=== PATIENT | male | born 1970 | race African-American/Black ===

== ENCOUNTER 2017-04-14 10:06 | Emergency (ER) | payer MEDICAID ==
[~2017-04-14] VITALS: Ht 170.2 cm; Wt 100.0 kg
[2017-04-14 10:19] VITALS: BP 149/96
[2017-04-14] MEDS ORDERED: METOCLOPRAMIDE HCL 10MG TABLET PO STA (12:17)
[2017-04-14] MEDS ORDERED: FAMOTIDINE 20MG TABLET PO STA (12:17)
[2017-04-14 12:54] LABS: BASOPHILS % 0.6 % (0.0-2.0); CHLORIDE 98 mEq/L (98-107); EOSINOPHILS % 0.9 % (0.0-5.0); HEMATOCRIT. 45.4 % (42.0-52.0); HEMOGLOBIN. 15.7 g/dL (14.0-18.0); LYMPHOCYTES % 31.1 % (20.0-50.0); MEAN CORPUSCULAR HEMOGLOBIN 28.8 pg (28.0-32.0); MEAN CORPUSCULAR VOLUME 83.3 fL (80.0-94.0); MEAN PLATELET VOLUME 8.4 fl (7.4-10.4); MONOCYTES % 5.3 % (2.0-8.0); NEUTROPHILS % 62.1 % (40.0-76.0); PLATELET 212 x1000/uL (130-400); RED BLOOD CELL COUNT 5.45 mill/uL (4.7-6.1); RED CELL DISTRIBUTION WIDTH 13.1 % (11.6-14.6)
[2017-04-14 13:03] LABS: CARBON DIOXIDE 29 mEq/L (21-32)
== END 2017-04-14 14:24 | disposition home or self-care (01) ==
LOC: ER 13:30
DX: K92.0 Hematemesis (principal); R10.13 Epigastric pain; K92.1 Melena
CPT/HCPCS: 36415; 80053; 83690; 85025; 99284; J8597

== ENCOUNTER 2017-11-11 17:28 | Emergency (ER) | payer MEDICAID ==
[~2017-11-11] VITALS: Ht 170.2 cm; Wt 91.0 kg
[2017-11-11 22:40] VITALS: BP 130/83
[2017-11-11] MEDS ORDERED: MAGNESIUM/ALUMINUM HYDROXIDE/SIMETHICONE 30ML UDC PO STA (22:54)
[2017-11-11] MEDS ORDERED: VISCOUS LIDOCAINE 2% 15 ML UDC PO STA (22:54)
[2017-11-11] MEDS ORDERED: ONDANSETRON HCL 4MG TABLET PO ONE (23:00)
== END 2017-11-12 00:50 | disposition home or self-care (01) ==
LOC: ER 18:46
DX: K21.9 Gastro-esophageal reflux disease without esophagitis (principal)
CPT/HCPCS: 71046; 93005; 99284; Q0162; Z7610

== ENCOUNTER 2017-12-04 13:05 | Emergency (ER) | payer MEDICAID ==
[~2017-12-04] VITALS: Ht 170.2 cm; Wt 100.0 kg
[2017-12-04] MEDS ORDERED: KETOROLAC 30MG/ML VIAL IM ONE (14:45)
[2017-12-04] MEDS ORDERED: CYCLOBENZAPRINE 10MG TABLET PO ONE (14:45)
[2017-12-04 15:48] VITALS: BP 110/73
== END 2017-12-04 15:56 | disposition home or self-care (01) ==
LOC: ER 14:02
DX: M54.5 Low back pain (principal)
CPT/HCPCS: 72110; 96372; 99284; J1885

== ENCOUNTER 2017-12-29 05:25 | Emergency (ER) | payer MEDICAID ==
[~2017-12-29] VITALS: Ht 170.2 cm; Wt 91.0 kg
[2017-12-29] MEDS ORDERED: SODIUM CHLORIDE 0.9% 1,000 ML IV ONE (06:14)
[2017-12-29 06:51] LABS: BASOPHILS % 0.3 % (0.0-2.0); EOSINOPHILS % 3.2 % (0.0-5.0); HEMATOCRIT. 39.3 % (42.0-52.0); HEMOGLOBIN. 13.7 g/dL (14.0-18.0); LYMPHOCYTES % 37.1 % (20.0-50.0); MEAN CORPUSCULAR HEMOGLOBIN 29.9 pg (28.0-32.0); MEAN CORPUSCULAR VOLUME 85.7 fL (80.0-94.0); MEAN PLATELET VOLUME 8.3 fl (7.4-10.4); MONOCYTES % 10.7 % (2.0-8.0); NEUTROPHILS % 48.7 % (40.0-76.0); PLATELET 194 x1000/uL (130-400); RED BLOOD CELL COUNT 4.59 mill/uL (4.7-6.1); RED CELL DISTRIBUTION WIDTH 13.7 % (11.6-14.6)
[2017-12-29 06:53] LABS: CHLORIDE 103 mEq/L (98-107)
[2017-12-29] MEDS ORDERED: MAGNESIUM/ALUMINUM HYDROXIDE/SIMETHICONE 30ML UDC PO STA (08:07)
[2017-12-29] MEDS ORDERED: KETOROLAC 15MG/ML VIAL IV ONE (08:15)
[2017-12-29] MEDS ORDERED: ONDANSETRON HCL 4MG/2ML VIAL IV ONE (08:15)
[2017-12-29] MEDS ORDERED: FAMOTIDINE 20MG/2ML VIAL IV ONE (08:15)
[2017-12-29 08:25] VITALS: BP 120/81
== END 2017-12-29 08:40 | disposition home or self-care (01) ==
LOC: ER 05:25
DX: B34.9 Viral infection, unspecified (principal); D64.9 Anemia, unspecified; E88.09 Other disorders of plasma-protein metabolism, not elsewhere classified; K21.9 Gastro-esophageal reflux disease without esophagitis; R74.0 Nonspecific elevation of levels of transaminase and lactic acid dehydrogenase [LDH]; R73.9 Hyperglycemia, unspecified
CPT/HCPCS: 36415; 71045; 80053; 83605; 85025; 87804; 93005; 96361; 96374; 96375; 99285; J1885; J2405; J3490; J7030

== ENCOUNTER 2018-02-22 08:09 | Emergency (ER) | payer MEDICAID ==
[~2018-02-22] VITALS: Ht 170.2 cm; Wt 100.0 kg
[2018-02-22] MEDS ORDERED: ONDANSETRON HCL 4MG/2ML VIAL IV STA (09:10)
[2018-02-22] MEDS ORDERED: VISCOUS LIDOCAINE 2% 15 ML UDC PO STA (09:10)
[2018-02-22] MEDS ORDERED: MAGNESIUM/ALUMINUM HYDROXIDE/SIMETHICONE 30ML UDC PO STA (09:10)
[2018-02-22] MEDS ORDERED: FAMOTIDINE 20MG/2ML VIAL IV ONE (09:15)
[2018-02-22 09:31] LABS: BASOPHILS % 0.4 % (0.0-2.0); EOSINOPHILS % 0.7 % (0.0-5.0); HEMATOCRIT. 38.9 % (42.0-52.0); HEMOGLOBIN. 13.4 g/dL (14.0-18.0); LYMPHOCYTES % 40.1 % (20.0-50.0); MEAN CORPUSCULAR HEMOGLOBIN 29.5 pg (28.0-32.0); MEAN CORPUSCULAR VOLUME 85.8 fL (80.0-94.0); MEAN PLATELET VOLUME 7.8 fl (7.4-10.4); MONOCYTES % 5.4 % (2.0-8.0); NEUTROPHILS % 53.4 % (40.0-76.0); PLATELET 193 x1000/uL (130-400); RED BLOOD CELL COUNT 4.53 mill/uL (4.7-6.1); RED CELL DISTRIBUTION WIDTH 13.5 % (11.6-14.6)
[2018-02-22 09:33] LABS: CHLORIDE 103 mEq/L (98-107)
[2018-02-22 09:37] LABS: ETHANOL BLOOD < 10 mg/dL
[2018-02-22] MEDS ORDERED: KETOROLAC 30MG/ML VIAL IV ONE (10:15)
[2018-02-22 11:50] VITALS: BP 139/84
== END 2018-02-22 11:57 | disposition home or self-care (01) ==
LOC: ER 08:30
DX: R11.2 Nausea with vomiting, unspecified (principal); M79.1 Myalgia; R10.13 Epigastric pain
CPT/HCPCS: 36415; 80053; 83690; 85025; 96374; 96375; 99284; G0482; J1885; J2405; J3490

== ENCOUNTER 2019-11-27 11:10 | Emergency (ER) | payer MEDICAID ==
[~2019-11-27] VITALS: Ht 170.2 cm; Wt 93.8 kg
[2019-11-27] MEDS ORDERED: IBUPROFEN 400MG TABLET PO ONE (12:15)
[2019-11-27 13:11] VITALS: BP 125/85
== END 2019-11-27 13:14 | disposition home or self-care (01) ==
LOC: ER 11:10
DX: M25.511 Pain in right shoulder (principal); M25.521 Pain in right elbow; G89.29 Other chronic pain; E11.9 Type 2 diabetes mellitus without complications
CPT/HCPCS: 73030; 73080; 99283

== ENCOUNTER 2020-10-20 03:24 | Emergency (ER) | payer MEDICAID ==
[~2020-10-20] VITALS: Ht 165.1 cm; Wt 82.0 kg
[2020-10-20] MEDS ORDERED: DICYCLOMINE 10 MG/5 ML ORAL SYR PO STA (03:55)
[2020-10-20] MEDS ORDERED: VISCOUS LIDOCAINE 2% 15 ML UDC PO STA (03:55)
[2020-10-20] MEDS ORDERED: MAGNESIUM/ALUMINUM HYDROXIDE/SIMETHICONE 30ML UDC PO STA (03:55)
[2020-10-20] MEDS ORDERED: KETOROLAC 60MG/2ML VIAL IM STA (03:55)
[2020-10-20 04:45] LABS: BASOPHILS % 0.7 % (0.0-2.0); EOSINOPHILS % 9.6 % (0.0-5.0); HEMATOCRIT. 44.4 % (42.0-52.0); HEMOGLOBIN. 15.3 g/dL (14.0-18.0); LYMPHOCYTES % 50.6 % (20.0-50.0); MEAN CORPUSCULAR HEMOGLOBIN 28.8 pg (28.0-32.0); MEAN CORPUSCULAR VOLUME 83.5 fL (80.0-94.0); MEAN PLATELET VOLUME 7.9 fl (7.4-10.4); MONOCYTES % 6.5 % (2.0-8.0); NEUTROPHILS % 32.6 % (40.0-76.0); PLATELET 234 x1000/uL (130-400); RED BLOOD CELL COUNT 5.31 mill/uL (4.7-6.1); RED CELL DISTRIBUTION WIDTH 12.8 % (11.6-14.6)
[2020-10-20 04:47] LABS: CHLORIDE 100 mEq/L (98-107)
[2020-10-20 05:22] LABS: CLARITY URINE CLEAR (CLEAR); COLOR URINE YELLOW (YELLOW); KETONES URINE NEGATIVE (NEGATIVE); LEUKOCYTE ESTERASE URINE NEGATIVE (NEGATIVE); NITRITE URINE NEGATIVE (NEGATIVE); OCCULT BLOOD URINE NEGATIVE (NEGATIVE); PROTEIN URINE NEGATIVE (NEGATIVE); SPECIFIC GRAVITY URINE 1.011 (1.005-1.030); UROBILINOGEN URINE 0.2 E.U./dL (0.2-1.0)
[2020-10-20 07:30] VITALS: BP 131/89
== END 2020-10-20 07:32 | disposition home or self-care (01) ==
LOC: ER 03:24
DX: K59.00 Constipation, unspecified (principal); R10.13 Epigastric pain; E11.9 Type 2 diabetes mellitus without complications
CPT/HCPCS: 36415; 74018; 74176; 80053; 81003; 83690; 85025; 96372; 99285; J1885

== ENCOUNTER 2022-02-26 18:41 | Emergency (ER) | payer OTHER, MEDICAID ==
[~2022-02-26] VITALS: Ht 170.2 cm; Wt 91.0 kg
[2022-02-26 18:54] VITALS: BP 160/105
[2022-02-26 19:42] LABS: BASOPHILS % 0.9 % (0.0-2.0); EOSINOPHILS % 3.2 % (0.0-5.0); HEMATOCRIT. 45.6 % (42.0-52.0); HEMOGLOBIN. 15.5 g/dL (14.0-18.0); LYMPHOCYTES % 55.1 % (20.0-50.0); MEAN CORPUSCULAR HEMOGLOBIN 28.8 pg (28.0-32.0); MEAN PLATELET VOLUME 8.1 fl (7.4-10.4); MONOCYTES % 6.6 % (2.0-8.0); NEUTROPHILS % 34.2 % (40.0-76.0); PLATELET 243 x1000/uL (130-400); RED BLOOD CELL COUNT 5.37 mill/uL (4.7-6.1); RED CELL DISTRIBUTION WIDTH 13.3 % (11.6-14.6)
[2022-02-26 19:47] LABS: CHLORIDE 98 mEq/L (98-107)
[2022-02-26 23:42] LABS: CLARITY URINE CLEAR (CLEAR); COLOR URINE YELLOW (YELLOW); KETONES URINE NEGATIVE (NEGATIVE); LEUKOCYTE ESTERASE URINE NEGATIVE (NEGATIVE); NITRITE URINE NEGATIVE (NEGATIVE); OCCULT BLOOD URINE NEGATIVE (NEGATIVE); PH URINE 6.5 (4.5-8.0); PROTEIN URINE NEGATIVE (NEGATIVE); SPECIFIC GRAVITY URINE 1.028 (1.005-1.030); UROBILINOGEN URINE 0.2 E.U./dL (0.2-1.0)
[2022-02-26] MEDS ORDERED: NA PHOS,M-B/NA PHOS,DI-BA ENEMA 118ML PR ONE (23:45)
[2022-02-27] MEDS ORDERED: FEO PR (00:10)
== END 2022-02-27 00:33 | disposition home or self-care (01) ==
LOC: ER 18:41
DX: K62.89 Other specified diseases of anus and rectum (principal); E11.65 Type 2 diabetes mellitus with hyperglycemia
CPT/HCPCS: 36415; 74176; 80053; 81003; 85025; 93005; 99285

== ENCOUNTER 2024-11-15 11:17 | Emergency (ER) | payer MEDICAID, OTHER ==
[~2024-11-15] VITALS: Ht 175.3 cm; Wt 90.7 kg
[~2024-11-15 11:17] MED LIST: FEO PR
[2024-11-15 11:38] VITALS: O2SAT 97
[2024-11-15 12:23] LABS: BASOPHILS % 0.4 % (0.0-2.0); EOSINOPHILS % 1.2 % (0.0-5.0); HEMOGLOBIN. 16.2 g/dL (14.0-18.0); LYMPHOCYTES % 43.5 % (20.0-50.0); MEAN CORPUSCULAR HGB CONC 33.7 g/dL (31.0-37.0); MEAN CORPUSCULAR VOLUME 85.9 fL (80.0-94.0); MEAN PLATELET VOLUME 8.3 fl (7.4-10.4); NEUTROPHILS % 48.9 % (40.0-76.0); PLATELET 226 x1000/uL (130-400); RED BLOOD CELL COUNT 5.58 mill/uL (4.7-6.1); RED CELL DISTRIBUTION WIDTH 13.1 % (11.6-14.6); WHITE BLOOD COUNT 5.1 x1000/uL (4.5-11.0)
[2024-11-15 12:26] LABS: CHLORIDE 103 mEq/L (98-107); SODIUM 138 mEq/L (136-145)
[2024-11-15 12:27] LABS: CALCIUM 9.4 mg/dL (8.7-10.4); CARBON DIOXIDE 30 mEq/L (21-32)
[2024-11-15 12:32] LABS: CREATININE 0.9 mg/dL (0.6-1.3); GLUCOSE 394 mg/dL (70-105); UREA NITROGEN BLOOD 14 mg/dL (9-23)
[2024-11-15] MEDS: LIDOCAINE 5% PATCH TOP SCH (12:45)
[2024-11-15 13:11] LABS: CLARITY URINE CLEAR (CLEAR); COLOR URINE YELLOW (YELLOW); GLUCOSE URINE 3+ (NEGATIVE); KETONES URINE NEGATIVE (NEGATIVE); LEUKOCYTE ESTERASE URINE NEGATIVE (NEGATIVE); NITRITE URINE NEGATIVE (NEGATIVE); OCCULT BLOOD URINE NEGATIVE (NEGATIVE); PROTEIN URINE NEGATIVE (NEGATIVE); SPECIFIC GRAVITY URINE 1.044 (1.005-1.030)
[2024-11-15 13:16] LABS: ALANINE AMINOTRANSFERASE 20 IU/L (10-49); ALBUMIN 4.4 g/dL (3.2-4.8); ASPARTATE AMINOTRANSFERASE 14 IU/L (<34); BILIRUBIN DIRECT 0.1 mg/dL (<=3.0)
[2024-11-15 13:17] LABS: BILIRUBIN TOTAL 0.5 mg/dL (0.1-1.0); PROTEIN TOTAL 6.9 g/dL (6.0-8.3)
[2024-11-15 13:25] LABS: BACTERIA URINE NONE SEEN; RBC URINE 0-2 /hpf (0-2); SQUAMOUS EPITHELIAL CELL URINE RARE /lpf (RARE/1+); WBC URINE 0-2 /hpf (0-2); YEAST URINE NONE SEEN
[2024-11-15] MEDS: SODIUM CHLORIDE 0.9% 1,000 ML IV ONE (14:15)
[2024-11-15 17:19] VITALS: BP 130/80; PULSE 80; RESP 18; TEMP 36.8; O2SAT 97
== END 2024-11-15 17:21 | disposition home or self-care (01) ==
LOC: ER 13:17
DX: E11.65 Type 2 diabetes mellitus with hyperglycemia (principal); R10.813 Right lower quadrant abdominal tenderness; Z79.899 Other long term (current) drug therapy
CPT/HCPCS: 99284; 74176; 96360; 80076; 80048; 81003; 82962; 83690; 85025; 36415; J7030

== ENCOUNTER 2024-12-13 12:48 | Inpatient (IN) | payer SELFPAY ==
[~2024-12-13] VITALS: Ht 165.1 cm; Wt 79.8 kg
[2024-12-13 13:48] LABS: CLARITY URINE CLEAR (CLEAR); COLOR URINE YELLOW (YELLOW); GLUCOSE URINE 3+ (NEGATIVE); KETONES URINE NEGATIVE (NEGATIVE); LEUKOCYTE ESTERASE URINE NEGATIVE (NEGATIVE); NITRITE URINE NEGATIVE (NEGATIVE); OCCULT BLOOD URINE NEGATIVE (NEGATIVE); PH URINE 6.5 (4.5-8.0); PROTEIN URINE NEGATIVE (NEGATIVE); SPECIFIC GRAVITY URINE 1.026 (1.005-1.030); UROBILINOGEN URINE 0.2 E.U./dL (0.2-1.0)
[2024-12-13 14:20] LABS: SQUAMOUS EPITHELIAL CELL URINE NONE SEEN /lpf (RARE/1+); WBC URINE 0-2 /hpf (0-2)
[2024-12-13 14:21] LABS: BACTERIA URINE NONE SEEN; RBC URINE NONE SEEN /hpf (0-2)
[2024-12-13] MEDS: SODIUM CHLORIDE 0.9% 1,000 ML IV ONE (14:41)
[2024-12-13 14:59] LABS: CHLORIDE 101 mEq/L (98-107); POTASSIUM 4.2 mEq/L (3.5-5.1); SODIUM 137 mEq/L (136-145)
[2024-12-13 15:00] LABS: CALCIUM 9.3 mg/dL (8.7-10.4); CARBON DIOXIDE 30 mEq/L (21-32)
[2024-12-13 15:05] LABS: CREATININE 0.7 mg/dL (0.6-1.3); UREA NITROGEN BLOOD 8 mg/dL (9-23)
[2024-12-13 15:07] LABS: ALANINE AMINOTRANSFERASE 24 IU/L (10-49); ALBUMIN 3.8 g/dL (3.2-4.8); ASPARTATE AMINOTRANSFERASE 16 IU/L (<34); BILIRUBIN DIRECT 0.1 mg/dL (<=3.0); BILIRUBIN TOTAL 0.6 mg/dL (0.1-1.0); PROTEIN TOTAL 6.7 g/dL (6.0-8.3)
[2024-12-13 15:15] LABS: BASOPHILS % 0.5 % (0.0-2.0); EOSINOPHILS % 2.2 % (0.0-5.0); HEMATOCRIT. 44.7 % (42.0-52.0); MEAN CORPUSCULAR HEMOGLOBIN 28.8 pg (28.0-32.0); MEAN CORPUSCULAR HGB CONC 33.5 g/dL (31.0-37.0); MEAN CORPUSCULAR VOLUME 86.1 fL (80.0-94.0); MONOCYTES % 6.4 % (2.0-8.0); NEUTROPHILS % 41.9 % (40.0-76.0); PLATELET 231 x1000/uL (130-400); RED BLOOD CELL COUNT 5.19 mill/uL (4.7-6.1); RED CELL DISTRIBUTION WIDTH 13.2 % (11.6-14.6); WHITE BLOOD COUNT 4.9 x1000/uL (4.5-11.0)
[2024-12-13 15:30] LABS: GLUCOSE 189 mg/dL (70-105)
[2024-12-13 16:00] VITALS: BP 112/70; PULSE 83; RESP 20; TEMP 36.5
[2024-12-13] MEDS ORDERED: ZOLPIDEM TARTRATE 5MG TABLET PO PRN (17:45)
[2024-12-13] MEDS ORDERED: CLONIDINE 0.1MG TABLET PO PRN (17:45)
[2024-12-13] MEDS ORDERED: ONDANSETRON HCL 4MG/2ML INJ IV PRN (17:45)
[2024-12-13] MEDS ORDERED: ACETAMINOPHEN 325MG TABLET PO PRN (17:45)
[2024-12-13] MEDS: ENOXAPARIN 40MG/0.4ML SYR SUBCUT SCH (18:20)
[2024-12-13] MEDS: HYDROCODONE/ACETAMINOPHEN 5/325MG TABLET PO PRN (18:21)
[2024-12-13 20:26] VITALS: BP 111/70; PULSE 92; RESP 18; TEMP 36.6
[2024-12-14] VITALS: BP 113/66; PULSE 79; RESP 18; TEMP 36.6
[2024-12-14 04:00] VITALS: BP 120/68; PULSE 80; RESP 18; TEMP 36.6
[2024-12-14 08:00] VITALS: BP 128/81; PULSE 80; RESP 18; TEMP 36.7
[2024-12-14 08:20] LABS: BASOPHILS % 0.5 % (0.0-2.0); EOSINOPHILS % 2.7 % (0.0-5.0); HEMATOCRIT. 42.4 % (42.0-52.0); HEMOGLOBIN. 14.7 g/dL (14.0-18.0); LYMPHOCYTES % 55.4 % (20.0-50.0); MEAN CORPUSCULAR HEMOGLOBIN 29.7 pg (28.0-32.0); MEAN CORPUSCULAR HGB CONC 34.6 g/dL (31.0-37.0); MEAN CORPUSCULAR VOLUME 85.8 fL (80.0-94.0); MEAN PLATELET VOLUME 8.1 fl (7.4-10.4); MONOCYTES % 7.3 % (2.0-8.0); NEUTROPHILS % 34.1 % (40.0-76.0); PLATELET 206 x1000/uL (130-400); RED BLOOD CELL COUNT 4.94 mill/uL (4.7-6.1); WHITE BLOOD COUNT 4.3 x1000/uL (4.5-11.0)
[2024-12-14 08:41] LABS: CARBON DIOXIDE 29 mEq/L (21-32); CHLORIDE 103 mEq/L (98-107); SODIUM 140 mEq/L (136-145)
[2024-12-14 08:42] LABS: CALCIUM 9.2 mg/dL (8.7-10.4)
[2024-12-14 08:47] LABS: CREATININE 0.8 mg/dL (0.6-1.3); GLUCOSE 199 mg/dL (70-105); UREA NITROGEN BLOOD 10 mg/dL (9-23)
[2024-12-14 12:00] VITALS: BP 143/88; PULSE 85; RESP 20; TEMP 36.6
[2024-12-14] MEDS ORDERED: NALOXONE HCL 0.4MG/ML VIAL IV PRN (14:00)
[2024-12-14 16:00] VITALS: BP 119/64; PULSE 86; RESP 20; TEMP 36.9
[2024-12-14] MEDS: HYDROCODONE/ACETAMINOPHEN 10/325MG TABLET PO PRN (16:04)
[2024-12-14 20:00] VITALS: BP 96/52; PULSE 81; RESP 18; TEMP 35.7; O2SAT 98
[2024-12-15] VITALS: BP 96/54; PULSE 79; RESP 18; TEMP 35.8; O2SAT 98
[2024-12-15 04:00] VITALS: BP 112/71; PULSE 77; RESP 18; TEMP 36.4; O2SAT 96
[2024-12-15 07:05] LABS: CHLORIDE 100 mEq/L (98-107); POTASSIUM 4.3 mEq/L (3.5-5.1); SODIUM 137 mEq/L (136-145)
[2024-12-15 07:06] LABS: CALCIUM 9.4 mg/dL (8.7-10.4); CARBON DIOXIDE 29 mEq/L (21-32)
[2024-12-15 07:11] LABS: CREATININE 0.9 mg/dL (0.6-1.3); GLUCOSE 284 mg/dL (70-105)
[2024-12-15 07:12] LABS: UREA NITROGEN BLOOD 14 mg/dL (9-23)
[2024-12-15 07:32] LABS: BASOPHILS % 0.4 % (0.0-2.0); EOSINOPHILS % 2.6 % (0.0-5.0); HEMOGLOBIN. 14.8 g/dL (14.0-18.0); LYMPHOCYTES % 52.1 % (20.0-50.0); MEAN CORPUSCULAR HEMOGLOBIN 29.4 pg (28.0-32.0); MEAN CORPUSCULAR HGB CONC 34.5 g/dL (31.0-37.0); MEAN PLATELET VOLUME 8.2 fl (7.4-10.4); MONOCYTES % 8.1 % (2.0-8.0); NEUTROPHILS % 36.8 % (40.0-76.0); PLATELET 221 x1000/uL (130-400); RED BLOOD CELL COUNT 5.06 mill/uL (4.7-6.1); RED CELL DISTRIBUTION WIDTH 13.1 % (11.6-14.6); WHITE BLOOD COUNT 4.6 x1000/uL (4.5-11.0)
[2024-12-15 08:00] VITALS: BP 112/64; PULSE 74; RESP 20; TEMP 37.1; O2SAT 99
[2024-12-15] MEDS ORDERED: DEXTROSE 50% WATER 50ML SYRINGE IV PRN (09:45)
[2024-12-15] MEDS: INSULIN LISPRO 100 UNITS/ML SUBCUT SCH (10:38)
[2024-12-15] MEDS: BLOOD SUGAR DIAGNOSTIC STRIP TEST SCH (10:39)
[2024-12-15 12:00] VITALS: BP 117/86; PULSE 76; RESP 18; TEMP 36.7; O2SAT 99
[2024-12-15] MEDS ORDERED: BLOO-1482 MC (13:30)
[2024-12-15] MEDS ORDERED: METF-414 MT (13:30)
[2024-12-15] MEDS ORDERED: GLIP5TAB22 MT (13:30)
[2024-12-15 14:08] VITALS: BP 117/86; PULSE 76; TEMP 98; O2SAT 99
== END 2024-12-15 15:52 | disposition home or self-care (01) | DRG 351 ==
LOC: ER 12:48 → 7EST 14:23 → EDBEDREQ 14:27 → EDBEDREQTM 14:27
PROVIDERS: ADMIT Internal Medicine; ATTEND Internal Medicine
DX: M25.551 Pain in right hip (principal); E11.9 Type 2 diabetes mellitus without complications; M54.9 Dorsalgia, unspecified; Z59.71 Insufficient health insurance coverage; Z91.148 Patient's other noncompliance with medication regimen for other reason; Z79.899 Other long term (current) drug therapy
CPT/HCPCS: 36415; 80048; 80076; 81003; 82962; 83036; 85025; 99285; J1650; J1815; J7030